=== PATIENT | male | born 1965 | race Two or more races ===

== ENCOUNTER 2022-05-10 13:25 | Emergency (ER) | payer OTHER, MEDICAID ==
[~2022-05-10] VITALS: Ht 190.5 cm; Wt 125.0 kg
[2022-05-10 19:30] VITALS: BP 136/64
== END 2022-05-10 20:01 | disposition home or self-care (01) ==
LOC: ER 13:25
DX: S66.911A Strain of unspecified muscle, fascia and tendon at wrist and hand level, right hand, initial encounter (principal); X58.XXXA Exposure to other specified factors, initial encounter; Y93.89 Activity, other specified; Y92.89 Other specified places as the place of occurrence of the external cause; Y99.8 Other external cause status
CPT/HCPCS: 93971

== ENCOUNTER 2023-05-10 14:55 | Emergency (ER) | payer OTHER, MEDICAID ==
[~2023-05-10] VITALS: Ht 190.5 cm; Wt 129.4 kg
[2023-05-10 14:58] VITALS: BP 141/96; RESP 20; O2SAT 96
[2023-05-10] MEDS ORDERED: ASPirin 81 mg TAB PO ONE (15:15)
[2023-05-10 15:27] LABS: Basophils # (auto) 0 10 ^3/uL (0-0.2); Basophils % (auto) 0.8 % (0.0-2.0); Eosinophils # (auto) 0.2 10 ^3/uL (0-0.8); Eosinophils % (auto) 3.7 % (0.0-7.0); Hemoglobin 14.7 g/dL (13.5-17.5); Lymphocytes # (auto) 1.2 10 ^3/uL (0.4-5.4); Lymphocytes % (auto) 22.5 % (10.0-50.0); Mean Corpuscular Hgb Conc. 32.7 g/dL (32.0-36.0); Mean Corpuscular Volume 82.7 fL (80.0-100.0); Monocytes # (auto) 0.4 10 ^3/uL (0-1.3); Monocytes % (auto) 7.7 % (0.0-12.0); Neutrophils # (auto) 3.5 10 ^3/uL (1.6-8.6); Neutrophils % (auto) 65.3 % (37.0-80.0); Nucleated Red Blood Cells % 0.1 %; Red Blood Cells 5.44 10^6/uL (4.5-5.90); White Blood Cell 5.4 10^3/uL (4.4-10.8)
[2023-05-10 15:29] LABS: Urine Bacteria NONE SEEN /hpf (None Seen); Urine Blood Negative /uL (Negative); Urine Clarity Clear (Clear); Urine Color Yellow (Yellow); Urine Protein, UAD Negative (Negative); Urine Specific Gravity 1.016 (1.001-1.035); Urine Urobilinogen Normal (Negative); Urine WBC <1 /hpf (0 - 3)
[2023-05-10 15:32] LABS: Alanine Aminotransferase 33 U/L (7-40); Albumin 4.5 g/dL (3.2-4.8); Alkaline Phosphatase 71 U/L (46-116); Anion Gap 6 (5-15); Aspartate Aminotransferase 18 U/L (13-40); BUN/Creatinine Ratio 7.1 (10.0-20.0); Blood Urea Nitrogen 9 mg/dL (9-23); Calcium 9.6 mg/dL (8.7-10.4); Carbon Dioxide 27 mmol/L (20-30); Chloride 106 mmol/L (98-107); Glucose 114 mg/dL (74-106); Potassium 4.3 mmol/L (3.5-5.1); Sodium 139 mmol/L (136-145)
[2023-05-10 15:33] LABS: Bilirubin, Total 0.4 mg/dL (0.2-1.0)
[2023-05-10 15:55] VITALS: PULSE 68
== END 2023-05-10 17:03 | disposition home or self-care (01) ==
LOC: ER 14:55
DX: R07.89 Other chest pain (principal); R06.02 Shortness of breath; E11.9 Type 2 diabetes mellitus without complications; Z90.49 Acquired absence of other specified parts of digestive tract
CPT/HCPCS: 36415; 71046; 80053; 81001; 83880; 84484; 85025; 93005

== ENCOUNTER 2023-05-31 11:05 | Emergency (ER) | payer MEDICAID, OTHER ==
[2023-05-31 12:28] VITALS: BP 148/85; PULSE 62; RESP 18; TEMP 97.5; O2SAT 96
[2023-05-31 12:58] LABS: Basophils # (auto) 0 10 ^3/uL (0-0.2); Eosinophils # (auto) 0.3 10 ^3/uL (0-0.8); Eosinophils % (auto) 6.8 % (0.0-7.0); Hematocrit 45.7 % (41.0-53.0); Hemoglobin 14.9 g/dL (13.5-17.5); Lymphocytes # (auto) 0.9 10 ^3/uL (0.4-5.4); Lymphocytes % (auto) 19.2 % (10.0-50.0); Mean Corpuscular Hgb Conc. 32.6 g/dL (32.0-36.0); Mean Corpuscular Volume 82.9 fL (80.0-100.0); Monocytes # (auto) 0.7 10 ^3/uL (0-1.3); Monocytes % (auto) 15.1 % (0.0-12.0); Neutrophils # (auto) 2.8 10 ^3/uL (1.6-8.6); Neutrophils % (auto) 58.9 % (37.0-80.0); Nucleated Red Blood Cells % 0.1 %; Red Blood Cells 5.51 10^6/uL (4.5-5.90); Red Cell Distribution Width 14.8 % (11.8-14.3); White Blood Cell 4.7 10^3/uL (4.4-10.8)
[2023-05-31 13:11] LABS: Alanine Aminotransferase 29 U/L (7-40); Albumin 4.4 g/dL (3.2-4.8); Alkaline Phosphatase 62 U/L (46-116); Anion Gap 3 (5-15); Aspartate Aminotransferase 15 U/L (13-40); BUN/Creatinine Ratio 7.9 (10.0-20.0); Bilirubin, Total 0.4 mg/dL (0.2-1.0); Blood Urea Nitrogen 10 mg/dL (9-23); Calcium 9.5 mg/dL (8.7-10.4); Carbon Dioxide 30 mmol/L (20-30); Chloride 108 mmol/L (98-107); Glucose 81 mg/dL (74-106); Potassium 4.4 mmol/L (3.5-5.1); Sodium 141 mmol/L (136-145); Uric Acid 8.2 mg/dL (3.7-9.2)
[2023-05-31] MEDS ORDERED: DexAMETHasone SOD PHOS 10MG/1ML VIAL INJ IM ONE (14:00)
[2023-05-31] MEDS ORDERED: HYDROcodone-ACET 5/325MG TAB PO ONE (14:00)
[2023-05-31] MEDS ORDERED: KETOROLAC TROMETH 60MG/2ML VIAL IM ONE (14:00)
[2023-05-31] MEDS ORDERED: HYDR-4902 PO (14:05)
[2023-05-31] MEDS ORDERED: COLC1CAP PO (14:05)
== END 2023-05-31 14:06 | disposition home or self-care (01) ==
LOC: ER 11:05
DX: M25.572 Pain in left ankle and joints of left foot (principal); M25.571 Pain in right ankle and joints of right foot; Z90.49 Acquired absence of other specified parts of digestive tract
CPT/HCPCS: 36415; 80053; 83880; 84550; 85025; 96372; 99284; J1100; J1885

== ENCOUNTER 2024-11-19 23:54 | Emergency (ER) | payer OTHER ==
[~2024-11-19] VITALS: Ht 190.5 cm; Wt 121.8 kg
[~2024-11-19 23:54] MED LIST: COLC1CAP PO; HYDR-4902 PO
--- NOTE | 2024-11-20 00:06 | ED.PDOC ---
Back pain HPI HPI Comments HPI: Poor Historian. 59-year-old male presents to emergency room for evaluation of right foot pain status post kicking a door on Tuesday morning at 4:00 a.m.. Since then patient has been feeling pain at the base of his right great toe. Pain is worse with movement of the joints. No apparent deformity or apparent swelling is noted. No bruising is noted. Patient is neurovascularly intact in the affected extremity. Past Medical History: Denies any Past Surgical History: Denies any REVIEW OF SYSTEMS: CONSTITUTIONAL: Denies acute: fever, diaphoresis, chills, generalized weakness. HEAD: Denies acute: headache, photophobia Eyes: Denies acute: Double vision, vision loss, eye pain, eye discharge. EARS: Denies acute: tinnitus, hearing loss, ear discharge, ear pain, THROAT: Denies acute: sore throat, swelling, difficulty swallowing , pain with swallowing, change in voice. NECK: Denies acute: neck pain, neck swelling, stiff neck. HEART: Denies acute : chest pain, palpitations, LUNGS: Denies acute: SOB, wheezing, cough, hemoptysis ABDOMEN: Denies acute: abdominal pain, Nausea, Vomiting, diarrhea, melena , hematemesis, hematochezia SKIN: Denies acute: rash, redness, lesions, itchiness. EXTREMITIES: Denies acute: calf pain, numbness, tingling, weakness, Denies acute: Low back pain. Neuro: Denies acute: focal neurological deficit, motor or sensory focal neurological deficit, tremors, seizure like activity, confusion, dizziness, change in mental status, loss of bowel or bladder function, cauda equina like symptoms. : Denies acute: dysuria, hematuria, flank pain, increase in urinary frequency. PSYCH: Denies acute: hallucination, suicidal ideation, homicidal ideation. PHYSICAL EXAM: General: ----[id number]----acute distress, awake and alert. Head: normocephalic, atraumatic. Neck: supple, trachea is midline, no swelling. Throat: Normal phonation. Eyes:, no erythema, no purulent discharge, no proptosis, no icterus. Heart: regular rate, regular rhythm, no significant murmur appreciated. Lungs: no apparent respiratory distress, Able to speak in full sentences. No wheezing, no rhonchi, no crackles. No stridors Clear to auscultation bilaterally. Abdomen: non tender to palpation, non distended, soft, no guarding, no rebound, + bowel sounds. Neuro: Awake, Alert, oriented to name, self, situation, follows commands GCS=15. Speech is normal. Skin: no petechia, no purpura, no cyanosis, non-pale, not jaundice. Lower extremities: --no - Pitting edema no deformity, no focal swelling, no calf TTP. Evaluation of the right foot: No apparent deformity or swelling. No erythema. No calf tenderness. Pedal pulses palpable. Patient is neurovascularly intact in the affected extremity. Decreased range of motion of the right foot toes due to pain at the forefoot. Makes eye contact. moves all four extremities. Face: no apparent facial droop. Pedal pulses are palpable. ED COURSE: Time Seen by MD: 00:01 Primary Care Provider: UNKNOWN Reviewed Notes: Nurses Notes, Allergies Allergies: Coded Allergies: No Known Drug Allergy (Verified Allergy, Unknown, 05/10/23) Home Meds Active Scripts Hydrocodone-Acetaminophen (Hydrocodone Bitartrate/AC 5-325 mg) 1 Tab Tab, 1 TAB PO Q6HR, #10 TAB as needed for severe pain Prov:MANISHA GRANDA BMET 05/31/23 Colchicine (Colchicine) 0.6 Mg Cap, 0.6 MG PO BID, #6 CAP As needed for pain Prov:MANISHA GRANDA BMET 05/31/23 Information Source: Patient Past Medical History PAST MEDICAL HISTORY: Gout Surgical History: Cholecystectomy Family History Family History: Family hx of DM, Family hx of Cancer Social History Smoker: Non-Smoker Alcohol: Occasionally Drugs: Denies Drug Use Lives In: Home Was a procedure done? Was a procedure done?: No Back Pain Differential Dx Differential Diagnosis: Other (Fracture, dislocation, ligamentous injury, neurovascular injury, strain, sprain,) X-Ray, Labs, Meds, VS Vital Signs Date Time Temp Pulse Resp B/P (MAP) Pulse Ox O2 Delivery O2 Flow Rate FiO2 11/20/24 00:10 99.1 87 16 172/98 (122) 95 99.1 [facility] [id number] [place] [id number] Ph: [phone] DIAGNOSTIC IMAGING Diagnostic Imaging Report : [id number] Signed PATIENT: ISABELA HUITRON ACCT: [id number] UNIT: [id number] : 1965 LOC: ER ROOM / BED: / AGE / SEX: 59 / M ADM STATUS: REG ER SERVICE 0001 ORDERING PHYSICIAN: SIS ABBASI DO PROCEDURE(s): RFOOT - R FOOT 3 VIEW XRAY REASON: base of great toe pain injury ORDER NUMBER(s): [id number], ACCESSION NUMBER(s): [id number] EXAM: XY R FOOT 3 VIEW XRAY HISTORY: base of great toe pain injury COMPARISON: None TECHNIQUE: Three views of the right foot were performed. Findings/impression: No acute fracture or dislocation. No destructive osseous lesions. Mild degenerative changes. Moderate inferior and posterior calcaneal enthesophytes. Small osteophytes of the 1st MTP joint. ATED BY: SHERMAN NARAYANAN DO DICTATED DATE/TIME: 11/20/24105 SIGNED BY: SHERMAN NARAYANAN DO SIGNED DATE/TIME: 11/20/24105 CC: Time of 1ST Reevaluation: 01:12 Reevaluation 1ST: Unchanged Patient Education/Counseling: Diagnosis, Treatment Family Education/Counseling: Other Comments Patient presented with the above HPI.---right foot pain injury---workup was in itiated. patient was found with the above mentioned diagnosis. the following medications were ordered: please refer to order lists of meds and tests obtained by myself Dr. Abbasi. Patient ED course and VS have been stabilized. Patient has been reassessed in the ED and remained in a stable condition. Pertinent incidental findings were discussed with the patient and/or family. Patient/family voices understanding and is agreeable with plan. Patient has been observed in the ED adequate length of time to insure improvement/stability. Escalation of care considered: Consideration of escalation to observation or admission Hard sole shoe was given that the patient for support. Patient is neurovascularly intact in the affected extremity. Patient was DISCHARGED home in a stable condition. All the reports of any imaging studies that were ordered by myself were reviewed by myself. Departure 1 Departure Time of Disposition: 00:16 Impression: Primary Impression: Right foot injury Disposition: 01 HOME / SELF CARE / HOMELESS Condition: Stable Additional Instructions: Additional instructions: You MUST follow-up with your primary care/family doctor in 1 to 2 days. If you are unable to see your primary care/family doctor, please return to our emergency room for re-assessment and re-evaluation in 1 to 2 days. Return to the emergency room here in our facility or to the nearest ER [facility] if your symptoms change or worsen. CONSULTATIONS: you MUST Follow-up for consultation as soon as possible with: -orthopedic surgery in 1-2 days. Please call for appointment. You MUST call the consultants office yourself to make an appointment. You may need to arrange that through your insurance and/or your primary/family doctor. If you are unable to see the technical sales consultant in 1 to 2 days, you must return to our emergency room (or any other ER of your choice) for re-assessment and re- evaluation. Adequate fluid hydration. Use [id number] Tylenol ibuprofen with food for pain control. Below is a copy of your radiological report for follow up: [place] [address] Ph: [phone] DIAGNOSTIC IMAGING Diagnostic Imaging Report : [id number] Signed PATIENT: ISABELA HUITRON ACCT: [id number] UNIT: [id number] : 1965 LOC: ER ROOM / BED: / AGE / SEX: 59 / M ADM STATUS: REG ER SERVICE 0001 ORDERING PHYSICIAN: SIS ABBASI DO PROCEDURE(s): RFOOT - R FOOT 3 VIEW XRAY REASON: base of great toe pain injury ORDER NUMBER(s): [id number], ACCESSION NUMBER(s): [id number] EXAM: XY R FOOT 3 VIEW XRAY HISTORY: base of great toe pain injury COMPARISON: None TECHNIQUE: Three views of the right foot were performed. Findings/impression: No acute fracture or dislocation. No destructive osseous lesions. Mild degenerative changes. Moderate inferior and posterior calcaneal enthesophytes. Small osteophytes of the 1st MTP joint. ATED BY: SHERMAN NARAYANAN DO DICTATED DATE/TIME: 11/20/24105 SIGNED BY: SHERMAN NARAYANAN DO SIGNED DATE/TIME: 11/20/24105 CC: Discharged With: Self Critical Care Note Critical Care Time?: No SIS ABBASI DO Nov 20, 2024 00:06
--- NOTE | 2024-11-20 01:08 | DVH ---
EXAM: XY R FOOT 3 VIEW XRAY HISTORY: base of great toe pain injury COMPARISON: None TECHNIQUE: Three views of the right foot were performed. Findings/impression: No acute fracture or dislocation. No destructive osseous lesions. Mild degenerat torsten changes. Moderate inferior and posterior calcaneal enthesophytes. Small osteophytes of the 1st MT P joint.
[2024-11-20 03:23] VITALS: BP 150/80; PULSE 79; RESP 21; TEMP 98.8; O2SAT 97
[2024-11-20] MEDS: HYDROcodone-ACET 5/325MG TAB PO ONE (03:23)
== END 2024-11-20 03:26 | disposition home or self-care (01) ==
LOC: ER 23:54
DX: S99.921A Unspecified injury of right foot, initial encounter (principal); Z90.49 Acquired absence of other specified parts of digestive tract; Z79.899 Other long term (current) drug therapy; W22.03XA Walked into furniture, initial encounter; Y93.89 Activity, other specified; Y92.89 Other specified places as the place of occurrence of the external cause; Y99.8 Other external cause status
CPT/HCPCS: 73630

== ENCOUNTER 2025-01-18 19:47 | Emergency (ER) | payer OTHER ==
[~2025-01-18] VITALS: Ht 188 cm; Wt 120.0 kg
--- NOTE | 2025-01-18 20:39 | DVH ---
CLINICAL INDICATION: right ankle injury/pain TECHNIQUE: 3 radiographic views of the right ankle were obtained. Comparison: None FINDINGS/IMPRESSION: Questionable subtle lucency over the distal fibula metadiaphysis. Recommend correlation with point t enderness for nondisplaced fracture. There is minimal associated ankle soft tissue edema. No disloc ation. Small posterior and plantar calcaneal bony spurs.
--- NOTE | 2025-01-18 20:44 | ED.PDOC ---
Back pain HPI HPI Comments PT arrived in ER via EMS due to right ankle pain x 1 day. Pt VSS. pt in 02/07 right ankle pain. Minor swelling present. CSM intact. Pt states he injuried his ankle in october was seen at [facility] and discharged. Has been seeing a web production assistant has appointment 01/21/25 but pain was to bad to wait. Denies reinjurying ankle. Pt unable to apply presure to ankle since yesterday. HX Dm and gout Chief Complaint: Lower Extremity Time Seen by MD: 19:54 Primary Care Provider: UNKNOWN Reviewed Notes: Nurses Notes, Medications, Allergies Allergies: Coded Allergies: No Known Drug Allergy (Verified Allergy, Unknown, 05/10/23) Home Meds Active Scripts Ibuprofen (Ibuprofen) 800 Mg Tab, 800 MG PO Q8HP PRN for 5 Days, #15 TAB Prov:MC CORNELL PHARMACY TECHNICIAN INFUSION 01/18/25 Hydrocodone-Acetaminophen (Hydrocodone Bitartrate/AC 5-325 mg) 1 Tab Tab, 1 TAB PO Q6HR, #10 TAB as needed for severe pain Prov:MANISHA GRANDA APPLIED EXERCISE PHYSIOLOGIST 05/31/23 Colchicine (Colchicine) 0.6 Mg Cap, 0.6 MG PO BID, #6 CAP As needed for pain Prov:MANISHA GRANDA APPLIED EXERCISE PHYSIOLOGIST 05/31/23 Information Source: Patient Mode of Arrival: EMS Past Medical History PAST MEDICAL HISTORY: Gout Surgical History: Cholecystectomy Family History Family History: Family hx of DM, Family hx of Cancer Social History Smoker: Non-Smoker Alcohol: Occasionally Drugs: Denies Drug Use Lives In: Home Constitutional: denies: chills, diaphoresis, fatigue, fever, malaise, sweats, weakness, others EENTM: denies: blurred vision, double vision, ear bleeding, ear discharge, ear drainage, ear pain, ear ringing, eye pain, eye redness, hearing loss, mouth pain, mouth swelling, nasal discharge, nose bleeding, nose congestion, nose pain, photophobia, tearing, throat pain, throat swelling, voice changes, others Respiratory: denies: cough, hemoptysis, orthopnea, SOB at rest, shortness of breath, SOB with excertion, stridor, wheezing, others Cardiovascular: denies: chest pain, dizzy spells, diaphoresis, Dyspnea on exertion, edema, irregular heart beat, left arm pain, lightheadedness, pa lpitations, PND, syncope, others Gastrointestinal: denies: abdomen distended, abdominal pain, blood streaked bowels, constipated, diarrhea, dysphagia, difficulty swallowing, hematemesis, melena, nausea, poor appetite, poor fluid intake, rectal bleeding, rectal pain, vomiting, others Genitourinary: denies: burning, dysuria, flank pain, frequency, hematuria, incontinence, penile discharge, penile sore, pain, testicle pain, testicle swelling, urgency, others Neurological: denies: dizziness, fainting, headache, left sided numbness, left sided weakness, numbness, paresthesia, pre-existing deficit, right sided numbness, right sided weakness, seizure, speech problems, tingling, tremors, weakness, others Musculoskeletal: reports: joint pain, joint swelling; denies: back pain, gout, muscle pain, muscle stiffness, neck pain, others Integumetry: denies: bruises, change in color, change in hair/nails, dryness, laceration, lesions, lumps, rash, wounds, others Allergic/Immunocompromised: denies: Difficulty Healing, Frequent Infections, Hives, Itching, others Hematologic/Lymphatic: denies: anemia, blood clots, easy bleeding, easy bruising, swollen glands, others Endocrine: denies: excessive hunger, excessive sweating, excessive thirst, excessive urination, flushing, intolerance to cold, intolerance to heat, unex plained weight gain, unexplained weight loss, others Psychiatric: denies: anxiety, bipolar disorder, depression, hopeless, panic disorder, schizophrenia, sleepless, suicidal, others Physical Exam General Appearance: No Apparent Distress, Normal HEENT: Pharynx Normal Neck: Full Range of Motion, Non-Tender Respiratory: Lungs Clear, No Respiratory Distress, Normal Breath Sounds Cardiovascular: No Murmur, Normal Peripheral Pulses, Regular Rate/Rhythm Breast Exam: Deferred Gastrointestinal: Non Tender, Soft Genitalia: Deferred Pelvic: Deferred Rectal: Deferred Extremities: Normal inspection, Normal range of motion Musculoskeletal : Location: Right Extremity Location: Ankle (MILD EDEMA ANTERIOR RIGHT ANKLE. STRENGTH SENSORY MOTION INTACT NO NOTED BONY PROMINENCE POSITIVE PEDAL PULSE NO NOTED OBVIOUS VISUAL EXTERNAL TRAUMA) Apperance: Normal Neurologic: Alert, No Motor Deficits, Normal Affect, Normal Mood, No Sensory Deficits Cerebellar Function: Normal Reflexes: Normal Skin: Dry, Normal Color, Warm Lymphatic: No Adenopathy Was a procedure done? Was a procedure done?: No Back Pain Differential Dx Differential Diagnosis: Fracture, Musculoskeletal Pain X-Ray, Labs, Meds, VS Vital Signs Date Time Temp Pulse Resp B/P (MAP) Pulse Ox O2 Delivery O2 Flow Rate FiO2 01/18/25 21:00 99.3 99 20 110/74 (86) 97 99.3 01/18/25 21:00 99 20 100 Room Air* 0 21 01/18/25 19:53 98.5 92 16 135/90 (105) 97 98.5 X-Ray, Labs, Meds, VS Comment XRAY ANKLE FINDINGS/IMPRESSION: Questionable subtle lucency over the distal fibula metadiaphysis. Recommend correlation with point tenderness for nondisplaced fracture. There is minimal associated ankle soft tissue edema. No dislocation. Small posterior and plantar calcaneal bony spurs. PATIENT PLACED IN SHORT POSTERIOR LEG SPLINT AND CRUTCHES. CSM IS INTACT BEFORE AND AFTER. PATIENT GIVEN NORCO 10 MG P.O. REPORTS IMPROVEMENT IN PAIN AND FUNCTION REQUESTING DISCHARGE THIS TIME SCRIPT TRIAL OF IBUPROFEN 800 MG ADVISED TAKE MEDICATION PRESCRIBED SIDE EFFECTS DISCUSSED. ADVISED ON RICE. ADVISED TO FOLLOW UP WITH HIS PCP AND REFERRAL TO ORTHO FOR RE-EVALUATION. ADVISED NOT TO REMOVE THE SPLINT UNTIL HE FOLLOWS UP WITH ORTHO. ER RETURN PRECAUTIONS GIVEN PATIENT INDICATES UNDERSTANDING AGREES WITH DISCHARGE PLAN OF CARE. Time of 1ST Reevaluation: 19:58 Reevaluation 1ST: Unchanged Time of 2ND Reevaluation: 20:45 Reevaluation 2ND: Improved Patient Education/Counseling: Diagnosis, Treatment, Prognosis, Need For Follow Up Family Education/Counseling: No Family Present SEPSIS Sepsis Screen Date sepsis recognized/suspect: Jan 18, 2025 Time Sepsis recognized/suspect: 1952 Recent Procedure: No On Antibiotic Therapy: No Respiratory Rate >20: No Heart Rate >90: No Temp<36 C (96.8 F) or >38.3 C: No SBP <90 or MAP <65 mmHG: No New Acute Mental Status Change: No Is the patient on CPAP, BIPAP,: No Physician Orders R Ankle 3 View (01/18/25 19:54) Splints (01/18/25 ) Vital Signs Date Time Temp Pulse Resp B/P (MAP) Pulse Ox O2 Delivery O2 Flow Rate FiO2 01/18/25 21:00 99.3 99 20 110/74 (86) 97 99.3 01/18/25 21:00 99 20 100 Room Air* 0 21 01/18/25 19:53 98.5 92 16 135/90 (105) 97 98.5 Departure 1 Departure Time of Disposition: 20:47 Impression: Primary Impression: Fracture of distal fibula Qualified Codes: S82.831A - Other fracture of upper and lower end of right fibula, initial encounter for closed fracture Disposition: 01 HOME / SELF CARE / HOMELESS Condition: Stable e-Prescriptions Ibuprofen (Ibuprofen) 800 Mg Tab 800 MG PO Q8HP PRN for 5 Days, #15 TAB Prov: MC CORNELL 01/18/25 Discharged With: Self Critical Care Note Critical Care Time?: No Stability Stability form required: MC Barrera Jan 18, 2025 20:44
[2025-01-18 21:00] VITALS: BP 110/74; PULSE 99; RESP 20; TEMP 99.3; O2SAT 100
[2025-01-18] MEDS ORDERED: IBUP-1456 PO (21:09)
[2025-01-18] MEDS: HYDROcodone-ACET 5/325MG TAB PO ONE (21:21)
== END 2025-01-18 22:05 | disposition home or self-care (01) ==
LOC: ER 19:47 → EDBD 19:47 → ER 22:05
DX: S82.831A Other fracture of upper and lower end of right fibula, initial encounter for closed fracture (principal); M10.9 Gout, unspecified; F10.90 Alcohol use, unspecified, uncomplicated; Z79.899 Other long term (current) drug therapy; Z90.49 Acquired absence of other specified parts of digestive tract; X58.XXXA Exposure to other specified factors, initial encounter; Y93.89 Activity, other specified; Y92.89 Other specified places as the place of occurrence of the external cause; Y99.8 Other external cause status; Y90.9 Presence of alcohol in blood, level not specified
CPT/HCPCS: 29515; 73610